=== PATIENT | male | born 1990 | race Caucasian/White ===

== ENCOUNTER 2025-04-25 02:06 | Inpatient (IN) | payer MEDICAID ==
[~2025-04-25] VITALS: Ht 172.7 cm; Wt 88.9 kg
[2025-04-25 02:09] VITALS: O2SAT 98
[2025-04-25] MEDS: HYDROCODONE/ACETAMINOPHEN 10/325MG TABLET PO ONE (03:00)
[2025-04-25 04:43] LABS: BASOPHILS % 0.4 % (0.0-2.0); EOSINOPHILS % 0.3 % (0.0-5.0); HEMATOCRIT. 43.0 % (42.0-52.0); HEMOGLOBIN. 14.6 g/dL (14.0-18.0); LYMPHOCYTES % 9.5 % (20.0-50.0); MEAN PLATELET VOLUME 7.9 fl (7.4-10.4); MONOCYTES % 8.8 % (2.0-8.0); NEUTROPHILS % 81.0 % (40.0-76.0); PLATELET 332 x1000/uL (130-400); RED BLOOD CELL COUNT 4.80 mill/uL (4.7-6.1); RED CELL DISTRIBUTION WIDTH 13.1 % (11.6-14.6)
[2025-04-25 04:56] LABS: CREATININE 0.8 mg/dL (0.6-1.3); UREA NITROGEN BLOOD 7 mg/dL (9-23)
[2025-04-25 04:58] LABS: ASPARTATE AMINOTRANSFERASE 12 IU/L (<34)
[2025-04-25 04:59] LABS: BILIRUBIN DIRECT 0.2 mg/dL (<=3.0); BILIRUBIN TOTAL 0.5 mg/dL (0.1-1.0); PROTEIN TOTAL 7.3 g/dL (6.0-8.3)
[2025-04-25 05:07] LABS: C REACTIVE PROTEIN HIGH SENS 18.40 mg/l (<1.00)
[2025-04-25 05:57] LABS: ERYTHROCYTE SEDIMENTATION RATE 11 mm/hr (0-15)
[2025-04-25] MEDS: VANCOMYCIN 1G PREMIX 200 ML IV ONE (07:45)
[2025-04-25] MEDS: SODIUM CHLORIDE 0.9% (SEPSIS BOLUS) IV ONE (07:45)
[2025-04-25 09:00] VITALS: BP 146/95; PULSE 96; RESP 19; TEMP 36.6404
[2025-04-25] MEDS ORDERED: ONDANSETRON HCL 4MG/2ML INJ IV PRN (09:15)
[2025-04-25] MEDS ORDERED: NALOXONE HCL 0.4MG/ML VIAL IV PRN (09:15)
[2025-04-25] MEDS: HYDROCODONE/ACETAMINOPHEN 5/325MG TABLET PO PRN (11:37)
[2025-04-25] MEDS: ENOXAPARIN 40MG/0.4ML SYR SUBCUT SCH (11:38)
[2025-04-25] MEDS: CEFTRIAXONE 1GM/50ML 50 ML IV SCH (11:38)
[2025-04-25 12:00] VITALS: BP 146/95; PULSE 96; RESP 19; TEMP 36.6; O2SAT 100
[2025-04-25 14:46] LABS: CLARITY URINE CLEAR (CLEAR); COLOR URINE YELLOW (YELLOW); GLUCOSE URINE NEGATIVE (NEGATIVE); KETONES URINE NEGATIVE (NEGATIVE); LEUKOCYTE ESTERASE URINE TRACE (NEGATIVE); NITRITE URINE NEGATIVE (NEGATIVE); OCCULT BLOOD URINE NEGATIVE (NEGATIVE); PH URINE 5.5 (4.5-8.0); PROTEIN URINE NEGATIVE (NEGATIVE); SPECIFIC GRAVITY URINE 1.013 (1.005-1.030); UROBILINOGEN URINE 0.2 E.U./dL (0.2-1.0)
[2025-04-25 15:17] LABS: SQUAMOUS EPITHELIAL CELL URINE 1+ /lpf (RARE/1+)
[2025-04-25 15:18] LABS: MUCUS URINE 1+ /lpf (NONE/TRACE)
[2025-04-25 15:19] LABS: BACTERIA URINE NONE SEEN; RBC URINE NONE SEEN /hpf (0-2)
[2025-04-25 15:29] LABS: *AMPHETAMINES SCREEN URINE PRESUMPTIVE POSITIVE (NEGATIVE); *BARBITURATES SCREEN URINE NEGATIVE (NEGATIVE); *BENZODIAZEPINES SCREEN URINE NEGATIVE (NEGATIVE); *COCAINE SCREEN URINE NEGATIVE (NEGATIVE)
[2025-04-25 15:30] LABS: CANNABINOID URINE SCREEN NEGATIVE (NEGATIVE); ECSTASY MDMA SCREEN URINE CONF.TEST INDICATED (NEGATIVE); METHADONE URINE SCREEN NEGATIVE (NEGATIVE); OPIATES URINE SCREEN PRESUMPTIVE POSITIVE (NEGATIVE); PHENCYCLIDINE URINE SCREEN NEGATIVE (NEGATIVE)
[2025-04-25 16:00] VITALS: BP 132/82; PULSE 102; RESP 17; TEMP 37.1; O2SAT 98
[2025-04-25 20:00] VITALS: BP 151/90; PULSE 97; RESP 19; TEMP 36.6; O2SAT 100
[2025-04-26] VITALS: BP 120/82; PULSE 115; RESP 17; TEMP 37; O2SAT 97
[2025-04-26 04:00] VITALS: BP 135/77; PULSE 101; RESP 19; TEMP 37.2; O2SAT 95
[2025-04-26 08:00] VITALS: BP 123/84; PULSE 87; RESP 18; TEMP 36.8; O2SAT 98
[2025-04-26 09:43] LABS: BASOPHILS % 0.4 % (0.0-2.0); EOSINOPHILS % 1.0 % (0.0-5.0); HEMATOCRIT. 45.1 % (42.0-52.0); HEMOGLOBIN. 15.0 g/dL (14.0-18.0); LYMPHOCYTES % 26.9 % (20.0-50.0); MEAN PLATELET VOLUME 8.4 fl (7.4-10.4); MONOCYTES % 13.3 % (2.0-8.0); NEUTROPHILS % 58.4 % (40.0-76.0); PLATELET 349 x1000/uL (130-400); RED BLOOD CELL COUNT 4.93 mill/uL (4.7-6.1); RED CELL DISTRIBUTION WIDTH 13.4 % (11.6-14.6)
[2025-04-26 10:04] LABS: CREATININE 0.8 mg/dL (0.6-1.3); UREA NITROGEN BLOOD 8 mg/dL (9-23)
[2025-04-26 12:00] VITALS: BP 134/83; PULSE 89; RESP 16; TEMP 36.2; O2SAT 95
[2025-04-26] MEDS: VANCOMYCIN 1GM PMX (XELLIA) 200 ML IV SCH (13:39)
[2025-04-26] MEDS: TETANUS, DIPHTHERIA, PERTUSSIS VAC/PF 0.5ML (>10YR OLD) IM ONE (13:41)
[2025-04-26 16:00] VITALS: BP 128/81; PULSE 93; RESP 18; TEMP 36.7; O2SAT 97
[2025-04-26 20:00] VITALS: BP 125/77; PULSE 91; RESP 20; TEMP 36.9; O2SAT 97
[2025-04-27] VITALS: BP 120/71; PULSE 100; RESP 18; TEMP 36.7; O2SAT 95
[2025-04-27 04:00] VITALS: BP 128/87; PULSE 94; RESP 20; TEMP 36.7; O2SAT 98
[2025-04-27 08:00] VITALS: BP 117/72; PULSE 103; RESP 18; TEMP 36.8; O2SAT 96
[2025-04-27 12:00] VITALS: BP 125/73; PULSE 77; RESP 18; TEMP 36.4; O2SAT 98
[2025-04-27 14:06] LABS: CREATININE 0.9 mg/dL (0.6-1.3); UREA NITROGEN BLOOD 11 mg/dL (9-23)
[2025-04-27 16:00] VITALS: BP 131/78; PULSE 85; RESP 16; TEMP 36.8; O2SAT 97
[2025-04-27 17:07] LABS: CHLAMYDIA TRACHOMATIS NAA Negative (Negative); NEISSERIA GONORRHOEAE NAA Negative (Negative)
[2025-04-27 20:00] VITALS: BP 120/86; PULSE 113; RESP 19; TEMP 36.8; O2SAT 96
[2025-04-28] VITALS: BP 134/82; PULSE 100; RESP 18; TEMP 36.6; O2SAT 100
[2025-04-28 04:00] VITALS: BP 126/70; PULSE 94; RESP 18; TEMP 36.6; O2SAT 100
[2025-04-28] MEDS: VANCOMYCIN 1G PREMIX 200 ML IV SCH (05:00)
[2025-04-28 08:00] VITALS: BP 131/76; PULSE 86; RESP 19; TEMP 36.5; O2SAT 97
[2025-04-28] MEDS ORDERED: SODIUM BICARBONATE 4.2% 2.5MEQ/5ML VIAL IV ONE (10:25)
[2025-04-28] MEDS ORDERED: LIDOCAINE HCL 1% 10 MG/ML 10ML VIAL ONE (10:25)
[2025-04-28 12:00] VITALS: BP 135/85; PULSE 105; RESP 20; TEMP 36.1; O2SAT 98
[2025-04-28 16:00] VITALS: BP 132/80; PULSE 99; RESP 19; TEMP 36.4; O2SAT 98
[2025-04-28 20:00] VITALS: BP 118/78; PULSE 113; RESP 18; TEMP 37.6; O2SAT 98
[2025-04-28] MEDS: METOPROLOL TARTRATE 25MG TABLET PO SCH (20:11)
[2025-04-28] MEDS: ACETAMINOPHEN 325MG TABLET PO PRN (21:12)
[2025-04-29] VITALS: BP 111/73; PULSE 84; RESP 16; TEMP 36.7; O2SAT 99
[2025-04-29 00:10] LABS: BODY FLUID MONOCYTES 4 %; BODY FLUID RBC 16300 /cu mm (0-2000); BODY FLUID WBC 809 /cu mm (0-200)
[2025-04-29 04:00] VITALS: BP 114/76; PULSE 84; RESP 14; TEMP 37.1; O2SAT 98
[2025-04-29 08:00] VITALS: BP 104/70; PULSE 85; RESP 16; TEMP 36.9; O2SAT 97
[2025-04-29 12:00] VITALS: BP 128/60; PULSE 96; RESP 16; TEMP 36.3; O2SAT 96
[2025-04-29 16:00] VITALS: BP 127/77; PULSE 86; RESP 18; TEMP 36.5; O2SAT 96
[2025-04-29 16:19] VITALS: BP 127/77; PULSE 86; RESP 18; TEMP 97.7
== END 2025-04-29 17:10 | disposition home or self-care (01) | DRG 383 ==
LOC: ER 02:06 → 8EST 07:42 → EDBEDREQ 08:03 → EDBEDREQTM 08:03 → ENRESERV 08:11
PROVIDERS: ADMIT Internal Medicine; ATTEND Internal Medicine
PROC: 0S9D3ZZ Drainage of Left Knee Joint, Percutaneous Approach (ICD-10-PCS; principal; 2025-04-28)
DX: L03.116 Cellulitis of left lower limb (principal); D72.829 Elevated white blood cell count, unspecified; M25.462 Effusion, left knee; F19.90 Other psychoactive substance use, unspecified, uncomplicated
CPT/HCPCS: 20611; 36415; 71045; 73562; 73700; 80048; 80076; 80202; 80305; 81003; 83605; 84145; 84550; 85025; 85651; 86141; 87491; 87591; 89060; 90715; 96360; 99285; J0696; J1650; J2003; J3373; J3490; J7030